=== PATIENT | male | born 1965 | race Caucasian/White ===

== ENCOUNTER → 2018-12-14 | Outpatient (CLI) | payer BC ==
[~2018-12-14] MED LIST: CIPROFLOXACIN500 MG PO; LEVOFLOXACIN500 MG PO; NKHM; VICODIN 500 MG-1 TAB PO
== END | disposition home or self-care (01) ==
LOC: RAD 15:46
DX: M17.0 Bilateral primary osteoarthritis of knee (principal); M25.461 Effusion, right knee